=== PATIENT | male | born 1990 | race Caucasian/White ===

== ENCOUNTER 2017-06-30 00:39 | Emergency (ER) | payer OTHER ==
[2017-06-30 00:51] VITALS: BP 135/82; PULSE 82; RESP 20; TEMP 98.2
[2017-06-30] MEDS ORDERED: chlordiazePOXIDE 25 MG CAP PO STA (01:10)
--- NOTE | 2017-06-30 01:12 | ED ---
General Adult HPI - General Chief complaint: Nausea/Vomiting/Diarrhea Stated complaint: withdrawal Time Seen by Provider: 06/30/17 00:51 Source: patient, RN notes reviewed Mode of arrival: ambulatory Limitations: no limitations - History of Present Illness Initial comments: This a 26-year-old male presents emergency Department chief complaint drug withdrawal. 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 Patient states she's been putting off Internet. Patient states he felt very shaky fell acute seizure. Patient states that seizures in the past from drug withdrawal. Patient states that he uses a does not use heroin or alcohol. Patient states that he used to be on other medications at least a biopsy Internet. Patient states she's having some insomnia and typical withdrawal symptoms with this medication. Patient denies any suicidal or homicidal thoughts. - Related Data Previous Rx's Medication Instructions Recorded chlordiazePOXIDE HCl [Librium] 25 mg PO QID #24 capsule 06/30/17 Allergies Allergy/AdvReac Type Severity Reaction Status Date / Time No Known Allergies Allergy Verified 06/30/17 00:51 Review of Systems ROS Statement: Those systems with pertinent positive or pertinent negative responses have been documented in the HPI. ROS Other: All systems not noted in ROS Statement are negative. Past Medical History Past Medical History: No Reported History History of Any Multi-Drug Resistant Organisms: None Reported Past Surgical History: Orthopedic Surgery Additional Past Surgical History / Comment(s): l femur Past Psychological History: No Psychological Hx Reported Smoking Status: Current every day smoker Past Alcohol Use History: Heavy Past Drug Use History: None Reported General Exam Limitations: no limitations General appearance: alert, in no apparent distress Head exam: Present: atraumatic, normocephalic, normal inspection Eye exam: Present: normal appearance, PERRL, EOMI. Absent: scleral icterus, conjunctival injection, periorbital swelling Neck exam: Present: normal inspection. Absent: tenderness, meningismus, lymphadenopathy Respiratory exam: Present: normal lung sounds bilaterally. Absent: respiratory distress, wheezes, rales, rhonchi, stridor Neurological exam: Present: alert, oriented X3, CN II-XII intact, reflexes normal. Absent: motor sensory deficit Skin exam: Present: warm, dry, intact, normal color. Absent: rash Course Vital Signs 06/30/17 00:46 Temperature 98.2 F Pulse Rate 82 Respiratory 20 Rate Blood Pressure 135/82 O2 Sat by Pulse 100 Oximetry Medical Decision Making - Medical Decision Making 26-year-old male present emergency department for drug withdrawal. Patient is taking synthetic medications at this time. Patient is taking medications similar to benzodiazepines. Patient may be at risk for possible seizure. I cannot pancreatic evidence of this on the studies. There is limited information at this time. Patient will be given librium and follow up Disposition Clinical Impression: Drug withdrawal Disposition: HOME SELF-CARE Condition: Stable Instructions: Benzodiazepine Abuse (ED) Additional Instructions: Please return to the Emergency Department if symptoms worsen or any other concerns. Prescriptions: chlordiazePOXIDE HCl [Librium] 25 mg PO QID #24 capsule Referrals: None,Stated [Primary Care Provider] - 1-2 days Time of Disposition: 01:12
== END 2017-06-30 01:29 | disposition home or self-care (01) ==
LOC: EC 00:39
DX: F13.230 Sedative, hypnotic or anxiolytic dependence with withdrawal, uncomplicated (principal); R56.9 Unspecified convulsions; F17.200 Nicotine dependence, unspecified, uncomplicated
CPT/HCPCS: 99283